=== PATIENT | male | born 1990 | race Caucasian/White ===

== ENCOUNTER 2017-09-09 03:55 | Emergency (ER) | payer OTHER ==
[~2017-09-09] VITALS: Ht 180.3 cm; Wt 86.2 kg
--- NOTE | 2017-09-09 04:03 | NUR ---
PATIENT BIB [employer] FOR MEDICAL CLEARANCE. PT WAS FOUND UNDER THE INFLUENCE. PT DENIES ANY SOB/CP AT THE MOMENT. [facility] [employer] AT BEDSIDE WITH PT
[2017-09-09 04:04] VITALS: BP 140/108
--- NOTE | 2017-09-09 04:08 | NUR ---
Patient being evaluated by physician at bedside.
--- NOTE | 2017-09-09 04:11 | NUR ---
PATIENT BIB [employer]. PATIENT EXAMINED BY DR. HERRON. PATIENT MEDICALLY CLEARED AND RELEASED IN CUSTODY IN STABLE CONDITION. ORIGINAL PRE-BOOK FORM GIVEN TO OFFICER CHITO.
[2017-09-09 04:12] VITALS: BP 136/99
== END 2017-09-09 04:12 ==
LOC: MED 03:55
DX: Z02.89 Encounter for other administrative examinations (principal); V89.2XXA Person injured in unspecified motor-vehicle accident, traffic, initial encounter; Y93.89 Activity, other specified; Y92.89 Other specified places as the place of occurrence of the external cause; Y99.8 Other external cause status
CPT/HCPCS: 99283